=== PATIENT | female | born 1935 | race Caucasian/White ===

== ENCOUNTER → 2019-08-23 | Day surgery (SDC) | payer MEDICARE ==
[2019-08-21 16:26] LABS: BASOPHILS # (AUTO) 0.1 (0.0-0.1); BASOPHILS % 0.9 % (0.0-1.0); EOSINOPHILS # (AUTO) 0.1 (0.0-0.4); EOSINOPHILS % 1.3 % (0.0-6.0); HEMATOCRIT 25.8 % (34.2-44.1); HEMOGLOBIN 7.8 g/dL (12.0-16.0); LYMPHOCYTES % 19.2 % (18.0-39.1); MEAN CORPUSCULAR HGB CONC 30.2 g/dL (31-35); MEAN CORPUSCULAR VOLUME 76.1 fL (81-99); MONOCYTES # (AUTO) 0.6 (0.2-0.8); MONOCYTES % 10.7 % (4.4-11.3); NEUTROPHILS # (AUTO) 3.7 (2.1-6.9); NEUTROPHILS % 67.5 % (38.7-80.0); PLATELET COUNT 298 x10e3/uL (140-360); RED BLOOD COUNT 3.39 x10e6/uL (3.6-5.1); RED CELL DISTRIBUTION WIDTH 17.5 % (11.7-14.4)
[2019-08-21 16:41] LABS: ANION GAP 12.7 mmol/L (8-16); CALCIUM 9.4 mg/dL (8.4-10.2); CREATININE, SERUM 1.08 mg/dL (0.57-1.11); POTASSIUM 3.7 mmol/L (3.5-5.1)
--- NOTE | 2019-08-21 17:19 | Diagnostic Imaging Report ---
Chest, 2 views, 08/21/2019. History: Preop, foot surgery. Comparison: None available. Findings: The cardiomediastinal silhouette and pulmonary vasculature are within normal limits. The lungs are clear without evidence of consolidation or pleural effusion. Mild degenerative changes of the thoracic spine are noted. There are no acute osseous or soft tissue abnormalities. Impression: No acute cardiopulmonary abnormality. Signed by: Damaso Archer on 08/21/2019 5:16 PM
[~2019-08-23] MED LIST: ALPRAZOLAM0.25 M1 PO; ATENOLOL50 MG PO; ATORVASTATIN CA10 MG PO; BUPIVACAINE HCL 0.5% INJ 30 ML VIAL INJ ONE; CEFAZOLIN SOD 1 GM/NS 50ML 100 ML IV ONE; DEXAMETHASONE SOD PHOS INJ 4 MG/ML VIAL ONE; EPHEDRINE SULFATE INJ 50 MG/ML VIAL ONE; FENTANYL CITRATE/PF 100MCG/2 ML INJ ONE; GLYCOPYRROLATE INJ 0.2 MG/ML VIAL ONE; LIDOCAINE HCL 2% LOCAL INJ 5 ML SDV VIAL INJ ONE; MAGNESIUM SULFATE 2GM/50ML IV ONE; MELOXICAM7.5 MG PO; MIDAZOLAM HCL 2 MG/2 ML VIAL ONE; NEOSTIGMINE 1 MG/ML 10ML VIAL ONE; ONDANSETRON HCL INJ 2MG/ML 2ML 2 MG/ML VIAL ONE; PANTOPRAZOLE SO40 MG PO; PRIMIDONE50 MG; PROPOFOL IV EMULSION 10 MG/ML 20 ML VIAL ONE; SEVOFLURANE INHAL SOLN 250 ML PEN BTL ONE; ULTRAM50 MG PO
--- OUTSIDE RECORDS SUMMARY | 2019-08-23 06:34 | XMS REPORT ---
Author Author [facility] Address Unknown Phone Unavailable Care Team Providers Care Pacs Specialist Name Role Phone DEVYN MOLINA Unavailable Unavailable Jennifer GARCIA Unavailable Unavailable Diana ESQUIVEL Unavailable Unavailable Payers Payer Name Policy Type Policy Number Effective Date Expiration Date Problems This patient has no known problems. Allergies, Adverse Reactions, Alerts Allergy Name Allergy Type Status Severity Reaction(s) Onset Date Inactive Date Treating Clinician Comments LEVAQUIN DA Active U 2007-05-28 00:00:00 No Known Contrast Allergies DA Active U 2007-05-28 00:00:00 No Known Food Allergies DA Active U 2007-05-28 00:00:00 No Known Other Allergies DA Active U 2007-05-28 00:00:00 No Known Drug Intolerances DA Active U 2006-05-01 00:00:00 Medications This patient has no known medications. Results Test Description Test Time Test Comments Text Results Atomic Results Result Comments CHEST 2 VIEWS 2019-08-21 17:15:[address] [address] Patient Name: JARRED MONTANO MR #: [id number] : 1935 Age/Sex: 83/F Req #: [id number] Adm Physician: Ordered by: DEVYN MOLINA DPWanda Report #: [id number] Location: OR Room/Bed: Procedure: [id number] DX/CHEST 2 VIEWS Exam Date: 08/21/19 Exam Time: 1650 REPORT STATUS: Signed Chest, 2 views, 08/21/2019. History: Preop, foot surgery. Comparison: None available. Findings: The cardiomediastinal silhouette and pulmonary vasculature are within normal limits. The lungs are clear without evidence of consolidation or pleural effusion. Mild degenerative changes of the thoracic spine are noted. There are no acute osseous or soft tissue abnormalities. Impression: No acute cardiopulmonary abnormality. Signed by: Damaso Archer on 08/21/2019 5:16 PM Dictated By: DAMASO ARCHER MD 15 Transcribed By: THEODORE on 08/21/191715 COPY TO: DEVYN MOLINA DPM CT BRAIN WO [place] [address] Patient Name: JARRED MONTANO MR #: [id number] : 1935 Age/Sex: 81/F Req #: [id number] Adm Physician: Ordered by: BLAKE LEAL Report #: [id number] Location: ER Room/Bed: Procedure: [id number] CT/CT BRAIN WO Exam Date: 06/27/17 Exam Time: 1740 REPORT STATUS: Signed Exam: Head CT without contrast History: Altered mental status Comparison studies: Head CT 03/27/2017 Technique: Axial images were obtained from the skull base to the vertex. Coronal and sagittal images reconstructed from the axial data. Intravenous contrast: None Findings: Scalp: No abnormalities. Bones: No fractures, blastic or lytic lesions. Brain sulci: Mildly prominent. Ventricles: Moderate compensatory dilatation. No hydrocephalus. Extra-axial spaces: No masses, no fluid collection. Parenchyma: No mass, acute hemorrhage or acute or chronic cortical vascular insults. Ill-defined hypodensities in the supratentorial white matter are nonspecific but most compatible with chronic small vessel ischemic changes. Sellar/suprasellar region: No abnormalities. Craniocervical junction: Patent foramen magnum. No Chiari one malformation. Incidental findings: Persistent nonspecific secretions in the right sphenoid sinus lateral recess could be correlated for sinusitis. Partially imaged 4 mm soft tissue density in the right posterior nasal pharynx is nonspecific, possibly polyp or retention cyst. IMPRESSION: No acute abnormalities. No significant changes from the previous head CT of 03/27/2017. Persistent findings: 1. Mild generalized volume loss. 2. Moderate small vessel ischemic changes. 3. Nonspecific right sphenoid sinus secretions could be correlated for sinusitis. Signed by: Dr. Horacio Padilla M.D. on 06/27/2017 6:07 PM Dictated By: HORACIO PADILLA MD 06 Transcribed By: THEODORE on 06/27/171806 COPY TO: BLAKE LEAL CHEST 2 VIEWS [place] [address] Patient Name: JARRED MONTANO MR #: [id number] : 1935 Age/Sex: 81/F Req #: [id number] Adm Physician: Ordered by: KATHY ESQUIVEL MD Report #: [id number] Location: ER Room/Bed: Procedure: [id number] DX/CHEST 2 VIEWS Exam Date: 06/24/17 Exam Time: 2240 REPORT STATUS: Signed EXAM: CHEST 2 VIEWS, PA and lateral DATE: 06/24/2017 10:30 PM Time stamp on exam: 2226 hours INDICATION: Infection COMPARISON: None FINDINGS: LINES/TUBES: None LUNGS: No consolidations or edema. PLEURA: No effusions or pneumothorax. HEART AND MEDIASTINUM: The heart is at the upper limits of normal in size. BONES AND SOFT TISSUES: No acute findings. IMPRESSION: No consolidative pneumonia. Signed by: Dr. Sal Toribio M.D. on 06/24/2017 11:01 PM Dictated By: SAL TORIBIO MD 00 Transcribed By: THEODORE on 06/24/172300 COPY TO: KATHY ESQUIVEL MD
[2019-08-23 06:41] LABS: HEMATOCRIT 29.2 % (34.2-44.1); HEMOGLOBIN 8.9 g/dL (12.0-16.0)
[2019-08-23 10:25] VITALS: BP 138/70
--- NOTE | 2019-08-25 00:49 | Operative Report ---
DATE OF PROCEDURE: 08/23/2019 SURGEON: Neo [place] DPM PREOPERATIVE DIAGNOSES: Hallux abductovalgus deformity, severe with degenerative joint disease, right foot. Hammertoe with dorsal dislocation, second digit, right foot, dorsal contracture of the extensor tendon and capsule second metatarsophalangeal joint, right foot. POSTOPERATIVE DIAGNOSES: Hallux abductovalgus deformity, severe with degenerative joint disease, right foot. Hammertoe with dorsal dislocation, second digit, right foot, dorsal contracture of the extensor tendon and capsule second metatarsophalangeal joint, right foot. TITLE OF OPERATIONS: 1. A modified Ahsan Morales bunionectomy of the right foot. 2. Arthrodesis of the second digit of the right foot. 3. Extensor tenotomy and capsulotomy with V-plasty or extensor tendon lengthening of the second digit of the right foot with K-wire pinning. ANESTHESIA: General endotracheal. HEMOSTASIS: A right thigh tourniquet at 350 mmHg. PROCEDURE IN DETAIL: The patient was taken to the operating room in a mildly sedated state and placed on the operating table in supine position. Following induction of general anesthetic, the right lower extremity was elevated to 60 degrees to exsanguinate before inflating the pneumatic thigh tourniquet to 350 mmHg for hemostasis. Right lower extremity was placed on the operating table prior to performing following procedure. Procedure #1: Modified Ahsan bunionectomy, right foot. An approximate 6 cm dorsal linear incision was made across the dorsal medial aspect 1st metatarsophalangeal joint of the right foot. Incision was deepened via sharp and blunt dissection to the level of dorsal capsular structure. Care was taken to identify and retract all vital structures encountered. Head of the first metatarsal was delivered in surgical site remodeled utilizing an oscillating saw. The conjoined tendon of the adductor hallucis muscle was identified and tenotomized. Base of the proximal phalanx was resected utilizing an oscillating saw. This allowed for a reduction of the otherwise extreme IM angle as well as a realignment of the hallux abductus angle. The base of the second digit was remodeled, smoothed with appropriate cup and comb positionings. The area was irrigated with copious amounts of sterile saline solution. The deep closure was 3-0 Vicryl, subcutaneous 4-0 Vicryl, and 4-0 nylon. The extensor tendon was lengthened slightly. The areas of concern were injected with hydrocortisone and local. The patient tolerated the procedure well. Attention was then directed to the second digit of the right foot where a second procedure was performed arthrodesis second digit right foot. Linear incision was made overlying dorsal aspect of the head of the proximal phalanx of the second digit of the right foot. Incision was deepened via sharp and blunt dissection to the level of the head of the proximal phalanx. The head was delivered in the surgical site utilizing cup and cone reamer with the two-step implant system. The head and the base were remodeled and a K-wire was advanced distally. Implant advanced through the joint to hold it in the appropriate position and then K-wire aligned. This was performed with minimal dissection and irrigated with copious amounts of sterile saline solution. The metatarsophalangeal joint on the second was then evaluated and noted to be still contracted. An extensor tenotomy and capsulotomy were performed through separate incision overlying the 2nd metatarsophalangeal joint. K-wire was then advanced through both joints to facilitate and hold the alignment. Similarly, a retrograde technique was used to obtain the hallux of the right foot. All areas having been appropriately irrigated and closed with the appropriate mildly compressive dressings applied. Released the pneumatic thigh tourniquet showed a normal hyperemic flush to all digits of the right foot and the patient left the operating room, vital signs stable in apparent satisfactory condition, having tolerated both anesthetic procedure very well. SEBASTIÁN West/SIGRID /[id number]
== END | disposition home or self-care (01) ==
LOC: OR 05:31
PROVIDERS: ATTEND Podiatrist Foot Surgery
DX: M20.11 Hallux valgus (acquired), right foot (principal); M20.41 Other hammer toe(s) (acquired), right foot; M24.574 Contracture, right foot; M19.071 Primary osteoarthritis, right ankle and foot; D64.9 Anemia, unspecified; E78.5 Hyperlipidemia, unspecified; I49.3 Ventricular premature depolarization; I12.9 Hypertensive chronic kidney disease with stage 1 through stage 4 chronic kidney disease, or unspecified chronic kidney disease; N18.3 Chronic kidney disease, stage 3 (moderate); F41.9 Anxiety disorder, unspecified; Z01.810 Encounter for preprocedural cardiovascular examination; Z01.812 Encounter for preprocedural laboratory examination; Z01.818 Encounter for other preprocedural examination
CPT/HCPCS: 28270; 28285; 28296; 36415 ×2; 71046; 80048; 85014; 85018; 85025; 93005; C1713 ×2; J0690; J1100; J2001; J2250; J2405; J2704; J2710; J3010; J3475